=== PATIENT | female | born 1975 | race Caucasian/White ===

== ENCOUNTER 2020-06-20 09:07 | Emergency (ER) | payer OTHER ==
[~2020-06-20] VITALS: Ht 165.1 cm; Wt 73.0 kg
[~2020-06-20 09:07] MED LIST: IBUPROFEN800 MG PO; ORPH100T PO
[2020-06-20] MEDS ORDERED: MAXALT10 MG (09:38)
[2020-06-20] MEDS ORDERED: GABAPENTIN300 M2 (09:39)
[2020-06-20] MEDS ORDERED: BUTALBIT-ACETA1 EACH (09:39)
== END 2020-06-20 13:16 | disposition home or self-care (01) ==
LOC: ER 09:07
DX: R51 Headache (principal); Z03.818 Encounter for observation for suspected exposure to other biological agents ruled out

== ENCOUNTER 2020-07-14 14:09 | Emergency (ER) | payer OTHER ==
[~2020-07-14] VITALS: Ht 165.1 cm; Wt 72.6 kg
[~2020-07-14 14:09] MED LIST changes: +BUTALBIT-ACETA1 EACH; +GABAPENTIN300 M2; +MAXALT10 MG
[2020-07-14] MEDS ORDERED: SIMETHICONE80 MG PO (14:42)
[2020-07-14] MEDS ORDERED: ACID REDUCER20 M1 PO (14:42)
[2020-07-14] MEDS ORDERED: IBU800 MG PO (14:43)
[2020-07-14] MEDS ORDERED: MOBIC15 MG PO (14:43)
== END 2020-07-14 21:30 | disposition home or self-care (01) ==
LOC: ER 14:09
DX: K57.92 Diverticulitis of intestine, part unspecified, without perforation or abscess without bleeding (principal)

== ENCOUNTER 2021-05-28 11:11 | Emergency (ER) | payer OTHER ==
[~2021-05-28] VITALS: Ht 162.6 cm; Wt 66.2 kg
[~2021-05-28 11:11] MED LIST changes: +ACID REDUCER20 M1 PO; +IBU800 MG PO; +MOBIC15 MG PO; +SIMETHICONE80 MG PO
[2021-05-28] MEDS ORDERED: TOPAMAX200 MG (11:23)
[2021-05-28] MEDS ORDERED: AMITIZA8 MCG (11:23)
[2021-05-28] MEDS ORDERED: DICLOFENAC POTA50 MG PO (15:39)
[2021-05-28] MEDS ORDERED: SKELAXIN800 MG PO (15:39)
== END 2021-05-28 15:47 | disposition home or self-care (01) ==
LOC: ER 11:11
DX: M79.7 Fibromyalgia (principal); R07.89 Other chest pain; R07.81 Pleurodynia

== ENCOUNTER 2022-06-23 11:18 | Emergency (ER) | payer OTHER ==
[~2022-06-23] VITALS: Ht 162.6 cm; Wt 65.8 kg
[~2022-06-23 11:18] MED LIST changes: +AMITIZA8 MCG; +DICLOFENAC POTA50 MG PO; +SKELAXIN800 MG PO; +TOPAMAX200 MG
== END 2022-06-23 19:31 | disposition home or self-care (01) ==
LOC: ER 11:18
DX: R10.32 Left lower quadrant pain (principal); K57.30 Diverticulosis of large intestine without perforation or abscess without bleeding; M79.7 Fibromyalgia; G43.909 Migraine, unspecified, not intractable, without status migrainosus

== ENCOUNTER 2023-03-11 06:00 | Day surgery (SDC) | payer OTHER ==
[~2023-03-11 06:00] MED LIST changes: +AMBIEN10 MG PO; +EMGALITY P120 MG/1 M SQ; +INDERAL PO; +TOPAM PO
== END 2023-03-11 12:40 | disposition home or self-care (01) ==
LOC: CIR.AMB 06:00
PROVIDERS: ATTEND Obstetrics & Gynecology
DX: N84.0 Polyp of corpus uteri (principal); D26.1 Other benign neoplasm of corpus uteri; D25.9 Leiomyoma of uterus, unspecified; Z20.822 Contact with and (suspected) exposure to COVID-19

== ENCOUNTER 2025-06-19 09:19 | Emergency (ER) | payer OTHER ==
[~2025-06-19] VITALS: Ht 162.6 cm; Wt 72.6 kg
[2025-06-19] MEDS ORDERED: ATACAND32 MG PO (09:24)
[2025-06-19] MEDS ORDERED: LYRICA50 MG (09:24)
[2025-06-19] MEDS ORDERED: PROZAC10 MG PO (09:24)
[2025-06-19] MEDS ORDERED: AMBIEN5 MG PO (09:24)
[2025-06-19] MEDS ORDERED: ZANAFLEX2 M1 (09:25)
[2025-06-19] MEDS ORDERED: KETOROLAC TROMETHAMINE 60 MG VIAL IM STA (09:55)
[2025-06-19] MEDS ORDERED: KETOROLAC TROMETHAMINE 60 MG VIAL IM ONE (10:00)
[2025-06-19 10:31] LABS: BASO % 0.6 % (0.1-1.2); EOS # 0.08 (0.04-0.54); EOS % 1.6 % (0.7-7.0); LYMPH # 1.10 (1.18-3.74); LYMPH % 21.5 % (19.3-53.1); MEAN PLATELET VOLUME 9.40 fl (9.4-12.4); MONO # 0.28 (0.24-0.82); MONO % 5.5 % (4.7-12.5); NEUT # 3.62 (1.56-6.13); NEUT % 70.6 % (34.0-71.1); RED CELL DISTRIBUTION WIDTH 13.2 % (11.6-14.4)
[2025-06-19 10:32] LABS: URINE APPEARANCE Clear; URINE BILIRRUBIN Negative (NEGATIVE); URINE BLOOD Negative; URINE COLOR Yellow; URINE GLUCOSE Negative (NEGATIVE); URINE KETONE Negative (NEGATIVE); URINE LEUKOCYTE Negative; URINE NITRATE Negative; URINE PROTEIN Negative (NEGATIVE); URINE UROBILINOGEN 1.0 E.U./dl
[2025-06-19 10:33] LABS: URINE BACTERIA 1370.3 uL (0.0-1933); URINE EPITHELIAL CELLS 55.9 uL (0.0-38.8); URINE RBC 2.6 uL (0.0-20.8); URINE WBC 15.6 uL (0.0-23.2)
[2025-06-19 10:35] LABS: URINE CAST 0.43 uL (0.0-1.40)
== END 2025-06-19 12:30 | disposition home or self-care (01) ==
LOC: ER 09:27
DX: N20.0 Calculus of kidney (principal); N83.202 Unspecified ovarian cyst, left side